=== PATIENT | male | born 1990 | race Caucasian/White ===

== ENCOUNTER 2020-09-03 19:47 | Emergency (ER) | payer OTHER ==
[~2020-09-03] VITALS: Ht 190.5 cm; Wt 86.2 kg
[2020-09-03 19:47] VITALS: BP 115/63
--- NOTE | 2020-09-03 20:48 | NUR ---
Patient discharged to home in stable condition. Written and verbal after care instructions given. Patient verbalizes understanding of instruction. Pt ambulatory with a steady gait
== END 2020-09-03 20:50 | disposition home or self-care (01) ==
LOC: ER 19:51
DX: S39.011A Strain of muscle, fascia and tendon of abdomen, initial encounter (principal); W19.XXXA Unspecified fall, initial encounter; Y93.02 Activity, running; Y92.89 Other specified places as the place of occurrence of the external cause; Y99.8 Other external cause status